=== PATIENT | male | born 2005 | race Hispanic/Latino ===

== ENCOUNTER 2024-08-21 17:24 | Emergency (ER) | payer OTHER ==
[~2024-08-21] VITALS: Ht 175.3 cm; Wt 73.5 kg
[2024-08-21 22:46] VITALS: BP 148/101
== END 2024-08-21 22:50 | disposition home or self-care (01) ==
LOC: ED 17:24
DX: S09.90XA Unspecified injury of head, initial encounter (principal); W18.2XXA Fall in (into) shower or empty bathtub, initial encounter
CPT/HCPCS: 70450; 72125; 99283-25

== ENCOUNTER 2025-07-25 11:18 | Emergency (ER) | payer BC ==
[~2025-07-25] VITALS: Ht 175.3 cm; Wt 77.1 kg
[2025-07-25 12:20] LABS: BLOOD/HGB, URINE NEGATIVE (Negative); KETONE, URINE NEGATIVE (Negative); LEUK ESTERASE, URINE NEGATIVE (negative); NITRITE, URINE NEGATIVE (negative)
[2025-07-25 14:16] LABS: N. GONORRRHOEAE BY PCR NOT DETECTED (NOT DETECT)
[2025-07-25 14:49] VITALS: BP 131/83
== END 2025-07-25 14:40 | disposition home or self-care (01) ==
LOC: ED 11:18
PROVIDERS: Emergency Medicine
DX: N45.1 Epididymitis (principal)
CPT/HCPCS: 76870; 81003; 99284-25